=== PATIENT | male | born 1945 | race Caucasian/White ===

== ENCOUNTER 2017-11-02 06:43 | Day surgery (SDC) | payer MEDICARE ==
[~2017-11-02] VITALS: Ht 172.7 cm; Wt 110.8 kg
[2017-11-02] MEDS ORDERED: IOHEXOL 350 MG/ML 100 ML BTL (for Cath Lab) OTHER ONE (06:44)
[2017-11-02 07:00] VITALS: BP 147/82; PULSE 74; RESP 18; TEMP 99; O2SAT 94
[2017-11-02] MEDS ORDERED: NS 1000P @30 MLS/HR (KVO) IV SCH (07:00)
[2017-11-02] MEDS ORDERED: FLUO20CA12 PO (07:39)
[2017-11-02] MEDS ORDERED: GLUC500C5 PO (07:39)
[2017-11-02] MEDS ORDERED: VITA250C3 CHEW (07:39)
[2017-11-02] MEDS ORDERED: ATOR20TA15 PO (07:39)
[2017-11-02] MEDS ORDERED: DILT1TAB4 PO (07:39)
[2017-11-02] MEDS ORDERED: VITA2000 PO (07:39)
[2017-11-02] MEDS ORDERED: VALS320T6 PO (07:39)
[2017-11-02] MEDS ORDERED: METF500T PO ×2 (07:39→10:26)
[2017-11-02] MEDS ORDERED: VITA500S3 SL (07:39)
[2017-11-02] MEDS ORDERED: ASPI81TA23 PO (07:39)
[2017-11-02 07:42] LABS: AUTOMATED NEUTROPHIL # 6.9 TH/MM3 (1.8-7.7); BASOPHIL # 0.1 TH/MM3 (0-0.2); BASOPHIL % 0.8 % (0.0-2.0); EOSINOPHIL # 0.3 TH/MM3 (0-0.4); EOSINOPHIL % 2.8 % (0.0-4.0); HEMATOCRIT 41.4 % (39.0-51.0); HEMOGLOBIN 14.1 GM/DL (13.0-17.0); LYMPH % 19.6 % (9.0-44.0); MEAN CELL VOLUME 77.9 FL (80.0-100.0); MEAN CORPUSCULAR HEMOGLOBIN 26.4 PG (27.0-34.0); MEAN PLATELET VOLUME 7.4 FL (7.0-11.0); MONOCYTE # 0.8 TH/MM3 (0-0.9); NEUT % 68.8 % (16.0-70.0); PLATELET COUNT 323 TH/MM3 (150-450); RED BLOOD COUNT 5.31 MIL/MM3 (4.50-5.90); RED CELL DISTRIBUTION WIDTH 16.9 % (11.6-17.2); WHITE BLOOD COUNT 10.1 TH/MM3 (4.0-11.0)
[2017-11-02 07:54] LABS: INTERNATIONAL NORMALIZED RATIO 1.1 RATIO; PROTHROMBIN TIME - PATIENT 11.4 SEC (9.8-11.6)
[2017-11-02 07:56] LABS: BICARBONATE 27.6 MEQ/L (21.0-32.0); CALCIUM 9.6 MG/DL (8.5-10.1); CREATININE 1.23 MG/DL (0.60-1.30)
[2017-11-02] MEDS ORDERED: POTASSIUM CHLORIDE 20 MEQ CONTROLLED RELEASE TAB PO ONE (08:45)
[2017-11-02] MEDS ORDERED: VERAPAMIL HCL 5 MG/2 ML VIAL ONE (09:01)
[2017-11-02] MEDS ORDERED: NITROGLYCERIN INJ 5 ML ONE (09:02)
[2017-11-02] MEDS ORDERED: HEPARIN SODIUM - IV 10,000 UNITS/10 ML VIAL ONE (09:02)
[2017-11-02] MEDS ORDERED: LIDOCAINE HCL 1% PF 30 ML VIAL ONE (09:03)
--- NOTE | 2017-11-02 10:20 | CATHPROC ---
[facility] HIS Report Study Information Study Number Admission Scheduled Start Study Start [id number] Nov 02 2017 6:43AM 11/02/2017 Nov 02 2017 9:00AM [place] Service Cardiac Catheterization Admit Source Facility Department Other [facility] - Senior Grants Officer Physician and Clinical Staff Initial Abraham Reza Geothermal Operations Engineerhal Villanueva RN, Linda Hua,MCKENZIE Other cathlab, cathlab Recorder Joana Combs,DIRECTOR DIGITAL SALES TECH2 Scrub Teddy Donis RCIS(BS) Procedures Performed Procedure Location (Site) Vessel Name Coronary Angiograms LCA Left Coronary Coronary Angiograms RCA Right Coronary Venogram Brach. Vein (right) Brachial Vein Wire insertion Brach. Vein (right) Brachial Vein Equipment Time Email Marketing Intern Description Size Mfg Part Number Used/Scraped WIRE, RITIKA W/HYDROCOAT [id number] 09:30 [employer] 190CM Used 190CM *[id number] CATHETER, FR5 SWAN NICHOLAS 09:03 SAHNI GARVIN FR 5 110F5 *[id number] Used MONITOR TRANSDUCER, TRUWAVE [id number] 09:01 SAHNI GARVIN * Used W/STOCKCOCK *[id number] TRANSDUCER, TRUWAVE [id number] 09:01 SAHNI GARVIN * Used W/STOCKCOCK *[id number] [id number] *[id number] [id number] *[id number] [id number] *[id number] WIRE, HYDROSTEER 150CM [id number] 09:42 DAIG[employer] 150CM Used ANGLED GLIDE *[id number] 09:01 [employer] PACK, CCL CUSTOM * Used *[id number] BAND, RADIAL COMPRESSION TR [id number] 10:04 [employer] MEDICAL 29CM Used LARGE 29 *[id number] 09:01 [employer] WIRE, 3MMJ .035 180CM 180CM Used *[id number] 09:01 NAMIC MANIFOLD, 2 PORT * Used *[id number] 09:01 NAMIC MANIFOLD, 4 PORT * Used *[id number] 09:01 [employer] OMNIPAQUE, 350 MG, 150ML 150ML [id number] Used [id number] 09:01 BAXTER MED[employer] BLANKET,WARM AIR CCL * Used *[id number] SHEATH, FR6 TRANSRADIAL RM*[id number] 09:03 [employer] FR 6 Used SLENDER 10CM *[id number] SHEATH, FR6 TRANSRADIAL RM*[id number] 09:03 [facility] [facility] FR 6 Used SLENDER 10CM *[id number] Equipment Model, Serial, Lot Number and Expiration Data Description Model Number Serial Number Lot Number Expiration Date ROSA AGUILARSTEER 150CM [id number] 06-21-2020 ANGLED GLIDE History: Allergies Allergy Reaction Sulfa (Sulfonamide Antibiotics) History: Risk Factors Family History of Hypertension Dyslipidemia Previous IA Previous Heart Failure Premature CAD Yes Yes No No No Prior Valve Prior PCI Prior CABG Surgery No No No Cerebrovascular Peripheral Artery Chronic Lung On Dialysis Diabetes Disease Disease Disease No No No No No Labs Hgb (g/dl) Hct (%) WBC (l/cumm) Platelets (thousands) 11.60-17.00 35.00-51.00 4.00-11.00 150.00-450.00 14.1 41.4 10.1 323 Glucose (mg/dl) BUN (mg/dl) Creatinine (mg/dl) BUN:Creatinine (1:x) 74.00-106.00 7.00-18.00 0.50-1.30 10.00-20.00 131 21 1.2 17.5 Na (meq/l) K (meq/l) 136.00-145.00 3.50-5.10 141 3.3 INR (PTT:PT) 0.90-1.10 1.1 Medication Medication Total Dose (Bolus/Oral) Medication Total Dosage/Unit 1% XYLOCAINE 30 mL FENTANYL 50 mcg RADIAL COCKTAIL 5 mL (Bolus) Medications (Bolus/Oral) Medication Time Given Dosage/Unit Administered By Reason FENTANYL 11/02/2017 9:21:55 AM 50 mcg Fran Villanueva RN 50 mcg FENTANYL given in lab by Fran Villanueva RN in Left Antecubital via Peripheral IV. Ordered by Abraham Ni 1% XYLOCAINE 11/02/2017 9:22:16 AM 10 mL Abraham Sevilla 10 mL 1% XYLOCAINE given in lab by Abraham Sevilla in Right Radial via Subcutaneous. Ordered by Abraham Fernández RADIAL COCKTAIL 11/02/2017 9:23:00 AM 5 mL (Bolus) Abraham Sevilla 5 mL (Bolus) RADIAL COCKTAIL given in lab by Abraham Sevilla via Radial. Using [Solution Name]. O rdered by Abraham Sevilla HEPARIN 4400 UNITS,VERAPAMIL 2.5MG, NITRO 200MCG 1% XYLOCAINE 11/02/2017 9:24:56 AM 20 mL Abraham Sevilla 20 mL 1% XYLOCAINE given in lab by Abraham Sevilla in Right Antecubital via Subcutaneous. Ordered by Abraham Sevilla Medication (Drip) Medication Time Given Dosage/Unit Concentration/Unit Diluent (ml) Solution IV Solutions 11/02/2017 9:00:04 AM 0 mL (IV) 500 NaCl .9 IV Solutions given in lab by Joana Combs RRT TECH2 in Left Antecubital via Peripheral IV. Pump/D rip Flow = 20 ml/hr using NaCl .9. Ordered by Abraham Sevilla Initial Case Assessment Cardiovascular HR NIBP 71 169/90 Edema Present Skin color Skin None Normal Warm Dry Circulatory - Right Pulses Dorsalis Pedis Femoral Radial 2 1 2 Scale (0,1,2,3,4,d) Circulatory - Left Pulses Dorsalis Pedis Femoral Radial 2 1 Scale (0,1,2,3,4,d) Neurological State Oriented to time-place- Alert Moves all extremities person Respiration - General Respiration Rate SpO2 (%) (B/min) 18 96 Final Case Assessment Cardiovascular HR NIBP 69 148/81 Edema Present Skin color Skin None Normal Warm Dry Circulatory - Right Pulses Dorsalis Pedis Femoral Radial 2 1 2 Scale (0,1,2,3,4,d) Circulatory - Left Pulses Dorsalis Pedis Femoral Radial 2 1 Scale (0,1,2,3,4,d) Neurological State Oriented to time-place- Alert Moves all extremities person Respiration - General Respiration Rate SpO2 (%) (B/min) 17 94 Chronological Log Time Study Chronological Log 8:45:43 Patient arrived via Bed. 8:46:55 PATIENT RECEIVED 40MG POTASSIUM P.O. IN DOC UNITE 8:59:48 Patient Name, D.O.B, / Armband Verified By R.N. 8:59:49 Consent signed by the physician and the patient and verified by the Senior Grants Officer staff. 8:59:49 Pre-op and post- op instructions given; patient acknowledges understanding of instructions. 8:59:52 Allens test performed on the right radial and ulnar artery. 8:59:54 Patient has been NPO for More than 6Hrs. 8:59:54 Skin Breakdown- 8:59:56 Patient Warmer Placed on the Table. 8:59:57 Sebastian Prominences Protected Vitals capture started with the following parameters, Patient=Adult, Interval=5 min, Initial Pr addbcs=814 mmHg, 8:59:59 Deflation Rate=5 mmHg, Cuff placed on Left Arm 9:00:03 A # 20 IV was noted in the Antecubital (left). Grade = 0 IV Solutions given in lab by Joana Combs, YONATHAN TECH2 in Left Antecubital via Peripheral IV. Pump/Drip Flow = 20 ml/hr 9:00:04 using NaCl .9. Ordered by Abraham Sevilla 9:00:07 History and physical on the chart or being dictated. 9:00:56 HR=71 bpm, DOPG=458/90 mmhg, SpO2=96 %, Resp=18 B/min, Pain=0, Sofi=10, Berrios=2 Assessment: Initial Case, HR=71 BPM, KVKO=401/90 mmhg, Edema=None, Color=Normal, Skin = Warm, Dr y Right Pulses: Kumar Ped=2, Femoral=1, Radial=2 9:03:13 Left Pulses: Kumar Ped=2, Femoral=1 Neurological: State=Alert, Ox3, HEBERT Respiration: Resp=18 B/min, SpO2=96 % 9:03:34 Reference ECG taken 9:05:41 HR=68 bpm, FRTO=869/88 mmhg, SpO2=96 %, Resp=13 B/min, Pain=0, Sofi=10, Berrios=2 9:07:17 Right Radial and groin(s) prepped with 2% chlorhexidine, and draped after a 3 min. waiting t alfonso. 9:10:38 HR=72 bpm, MNRH=017/93 mmhg, SpO2=93.0 %, Resp=14 B/min, Pain=0, Sofi=10, Berrios=2 9:15:41 HR=69 bpm, BOEK=032/92 mmhg, SpO2=95 %, Resp=20 B/min, Pain=0, Sofi=10, Berrios=2 9:15:46 Pressure channel 1 zeroed. 9:18:00 Pressure channel 1 zeroed. Time Out. Correct patient, correct procedure, correct physician, power injector not loaded with contrast with surgical 9:20:01 team present. Time Out Concurred by MD and individual staff in procedure. ::16 Case Start 9:20:42 HR=70 bpm, ARRK=392/88 mmhg, SpO2=95 %, Resp=16 B/min, Pain=0, Sofi=10, Berrios=2 9::55 50 mcg FENTANYL given in lab by Fran Villanueva RN in Left Antecubital via Peripheral IV. Order ed by Abraham Sevilla 10 mL 1% XYLOCAINE given in lab by Abraham Sevilla in Right Radial via Subcutaneous. Ordered by Roel :: Abraham Villanueva 9:: Access site was Radial Artery. A SHEATH, FR6 TRANSRADIAL SLENDER 10CM FR 6 was advanced into the Radial (right) using the Modif ied Seldinger ::34 technique. 5 mL (Bolus) RADIAL COCKTAIL given in lab by Abraham Sevilla via Radial. Using [Solution Nam e]. Ordered by 9:23:00 Abraham Sevilla HEPARIN 4400 UNITS,VERAPAMIL 2.5MG, NITRO 200MCG 20 mL 1% XYLOCAINE given in lab by Abraham Sevilla in Right Antecubital via Subcutaneous. Or dered by Roel, 9:24:56 Abraham Cabrales. 9:25:41 HR=78 bpm, IBSA=699/88 mmhg, SpO2=91 %, Resp=19 B/min, Pain=0, Sofi=10, Berrios=2 9::27 Access site was Right Brachial Vein. A SHEATH, FR6 TRANSRADIAL SLENDER 10CM FR 6 was advanced into the Brach. Vein (right) using the Modified ::17 Seldinger technique. 9:28:24 A CATHETER, FR5 SWAN NICHOLAS MONITOR FR 5 was inserted via Brach. Vein (right) 9:30:19 The Brach. Vein (right) was manually injected with 10 cc's of contrast. OMNIPAQUE, 350 MG, 1 50ML 150ML used. 9:30:40 HR=72 bpm, MUVU=230/82 mmhg, SpO2=89.0 %, Resp=17 B/min, Pain=0, Sofi=10, Berrios=2 9:30:45 A WIRE, WHISPER W/HYDROCOAT 190CM 190CM was inserted via Brach. Vein (right). 9:32:46 Wire removed Recorded Pressure: PCW, HR=66, Condition=Condition 1 9:34:40 (Pulmonary Capillary Wedge) PCW 16/13/13 9:35:41 HR=68 bpm, LDIW=810/84 mmhg, SpO2=93 %, Resp=11 B/min, Pain=0, Sofi=10, Berrios=2 9:36:29 Saturation: Site=PA (Pulmonary Artery) , O2=76.7 %, Hgb=14.1 gm/dl, Condition=Condition 1. U sed in calculation. 9:37:17 Saturation: Site=Ao (Aorta) , O2=94.9 %, Hgb=14.1 gm/dl, Condition=Condition 1. Used in calc ulation. Recorded Pressure: MPA, HR=70, Condition=Condition 1 9:37:35 (Main Pulmonary Artery) MPA Recorded Pressure: RV, HR=63, Condition=Condition 1 9:38:24 (Right Ventricle) RV 37/6/11 Recorded Pressure: RA, HR=66, Condition=Condition 1 9:39:10 (Right Atrium) RA 04/07/10 9:40:40 HR=63 bpm, UDGE=766/85 mmhg, SpO2=93.0 %, Resp=16 B/min, Pain=0, Sofi=10, Berrios=2 9:40:50 [place] Nicholas Catheter Removed A JR 4.0 INFINITI CATHETER FR 5 was advanced over a wire. OMNIPAQUE, 350 MG, 150ML 150ML was us ed for 9:43:35 injections. 9:43:43 The previous wire was exchanged for a WIRE, HYDROSTEER 150CM ANGLED GLIDE 150CM. 9:44:46 The previous wire was exchanged for a WIRE, 3MMJ .035 180CM 180CM. 9:45:39 HR=66 bpm, YHLI=785/81 mmhg, SpO2=94 %, Resp=15 B/min, Pain=0, Sofi=10, Berrios=2 Recorded Pressure: Ao, HR=64, Condition=Condition 1 9:45:55 (Aorta) Ao 152/68/100 After removing the current catheter a 3DRC INFINITI CATHETER FR 5 was advanced over a WIRE, 3MM J .035 180CM 9:49:20 180CM. 9:50:40 HR=68 bpm, XXVY=425/85 mmhg, SpO2=93.0 %, Resp=18 B/min, Pain=0, Sofi=10, Berrios=2 9:51:17 The RCA was injected and visualized at various angles. OMNIPAQUE, 350 MG, 150ML 150ML used . After removing the current catheter a JL 3.5 INFINITI CATHETER FR 5 was advanced over a WIRE, 3 MMJ .035 180CM 9:52:19 180CM. 9:55:31 The LCA was injected and visualized at various angles. OMNIPAQUE, 350 MG, 150ML 150ML used . 9:55:41 HR=66 bpm, KABN=203/80 mmhg, SpO2=94 %, Resp=15 B/min, Pain=0, Sofi=10, Berrios=2 10:00:41 HR=76 bpm, QOHJ=085/85 mmhg, SpO2=93 %, Resp=18 B/min, Pain=0, Sofi=10, Berrios=2 10:01:58 Activated Clotting Time Drawn 10:02:13 Case End 10:03:15 Catheter(s) removed without difficulty Radial Compression Device Used. ~VOLUME ML~ mLs of air placed in BAND, RADIAL COMPRESSION TR LA RGE 29 10:04:33 29CM. Affected hand ~O2 SATURATION~ % O2 saturation. 10:04:55 BRACHIAL VENOUS Sheath(s) left in place, will be removed in Holding Area 10:05:41 HR=72 bpm, JFHH=559/81 mmhg, SpO2=92.0 %, Resp=12 B/min, Pain=0, Sofi=10, Berrios=2 10:05:46 ACT (Normal Range 90-180) = 189 10:06:48 Sterile dressing applied to site 10:06:49 No case complications noted. Assessment: Final Case, HR=69 BPM, WNRC=684/81 mmhg, Edema=None, Color=Normal, Skin = Warm, Dry Right Pulses: Kumar Ped=2, Femoral=1, Radial=2 10:07:32 Left Pulses: Kumar Ped=2, Femoral=1 Neurological: State=Alert, Ox3, HEBERT Respiration: Resp=17 B/min, SpO2=94 % 10:07:57 Vitals capture stopped. 10:10:47 Bedside Report will be given. 10:10:51 A Left and Right Heart Cath was performed. End Study - Contrast Media Used In Study Contrast Total Opened (mL) Total Used (mL) Total Wasted (mL) Omnipaque 70 70 0 End Study - Maximum Contrast Load Max Contrast Load (mL) 461.7 End Study - Radiation Exposure Fluoro Time (minutes) 9.9 End Study - Patient Disposition Complications Transferred To No Telemetry Bed
--- NOTE | 2017-11-02 10:59 | MA ---
cc: Abraham Sevilla DO DATE: 11/02/2017 DATE OF PROCEDURE: 11/02/2017 PROCEDURE PERFORMED: Coronary angiogram, right heart catheterization, ultrasound-guided access. PREOPERATIVE DIAGNOSIS: Severe aortic stenosis by echocardiogram for aortic valve replacement. POSTOPERATIVE DIAGNOSIS: Severe aortic stenosis by echocardiogram, coronary artery disease. MEDICATIONS: Fentanyl 50 mcg, nitro 200, verapamil 2.5 mg, heparin 4400 units. CONTRAST USED: 70 mL. FLUOROSCOPY TIME: 9.9 minutes. MODERATE SEDATION: Zero minutes. FRAILTY SCORE: 3 ESTIMATED BLOOD LOSS: 10 mL. PROCEDURAL SUMMARY: Justino Gray is a pleasant 72-year-old male who sees my partner, Dr. Nguyen, in the office and has undergone echocardiogram which showed severe aortic stenosis. Because of this, he was recommended cardiac catheterization. Risks, benefits and alternatives were explained to him and he consented to such. He was brought to the lab and prepped in the usual sterile fashion. The right radial artery was accessed using a modified Seldinger technique and placement of a 5/6-Portuguese slender sheath. This was easily aspirated and flushed. Right brachial vein was accessed using modified Seldinger technique and ultrasound guidance and placement of a 5/6-Portuguese slender sheath. This was easily aspirated and flushed. A Markle-Brady catheter was advanced to the upper arm and there was some difficulty with tortuosity and so a moderate support Whisper was used to advance the Markle-Brady catheter. The Markle-Brady was taken to a wedge position. Oxygen saturations and pressures were taken in a standard fashion upon pullback throughout the heart. Markle-Brady catheter was removed. JR4 was advanced over J-wire to the ascending aorta but was unable to engage the RCA due to significant tortuosity and so this was exchanged for a 3DRC which was used to perform selective angiography of the right coronary artery system. This was exchanged out for a 3.5, which was used to perform selective angiography of the left coronary artery system. JL3.5 was removed over a J -simone. A radial band was placed over the arteriotomy site for hemostasis. ACT was drawn at 189 and so the brachial sheath will be left until appropriate to pull and pressure held for hemostasis. 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 FINDINGS: Left main is a normal size vessel with adequate reflux. It bifurcates into an LAD and circumflex. It has 20% disease distally. LAD is a normal size vessel with a stent patent in the proximal portion and 10% in-stent restenosis. Distal to this in the mid portion, there is 80% lesion after the takeoff of the first diagonal. It gives off 1 major diagonal which has an upper and lower branch. The upper branch appears to have 70% disease while the lower branch has about 50% disease. Left circumflex is a normal size vessel with 20-30% disease throughout the proximal portion. It gives off 1 major obtuse marginal which has no significant disease throughout. RCA is a normal size vessel with diffuse 30% disease throughout. It gives off a PDA, which has a 99% lesion at the ostium. HEMODYNAMICS: RA 10. RV 37/6, RV EDP 11. PA 32/16, mean PA 22. Wedge 13. IMPRESSION: 1. Severe aortic stenosis by echocardiogram. 2. Coronary artery disease, as above, with significant disease of his left anterior descending and posterior descending artery. RECOMMENDATIONS: 1. Mr. Gray appears to have severe aortic stenosis as well as coronary artery disease and he will be recommended consideration of AVR plus CABG. 2. He will be seen by CT surgery and most likely be set up electively in the near future. 3. He will be discharged home today. Thank you for allowing me to see Justino Gray. If there are any questions, please do not hesitate to call. DO NICOLE Gaona/ALFREDO , 10:22 AM , 10:58 AM ARELY
[2017-11-02] MEDS ORDERED: CHLO.12%30 SWISH-SPIT (11:55)
--- NOTE | 2017-11-02 12:39 | RADRPT ---
EXAM DATE/TIME: 11/02/2017 11:58 [facility] COMPARISON: No previous studies available for comparison. INDICATIONS : Pre-op CABG. MEDICAL HISTORY : None. SURGICAL HISTORY : None. ENCOUNTER: Initial ACUITY: 1 day PAIN SCORE: 0/10 LOCATION: Bilateral chest FINDINGS: The lungs are clear. The heart is minimally enlarged. The pulmonary vascularity is normal. There is n o evidence for infiltrate or failure. The portion of the bony skeleton visualized is unremarkable. CONCLUSION: Compensated cardiomegaly otherwise negative Bradford Hand MD FACR on November 02, 2017 at 12:36 Board Certified Radiologist. This report was verified electronically.
[2017-11-02 13:04] LABS: BILIRUBIN, URINE NEG (NEG); BLOOD, URINE NEG (NEG); GLUCOSE,URINE NEG (NEG); HYALINE CAST, URINE 3 /lpf (RARE); KETONE, URINE NEG (NEG); MUCUS URINE FEW /lpf (OCC); NITRITE,URINE NEG (NEG); URINE COLOR YELLOW (YELLW/STRAW); URINE LEUKOCYTE ESTERASE NEG (NEG)
--- NOTE | 2017-11-02 15:50 | RADRPT ---
EXAM DATE/TIME: 11/02/2017 14:04 [facility] COMPARISON: No previous studies available for comparison. INDICATIONS : Preop cardiac surgery. MEDICAL HISTORY : Diabetes mellitus type 2. Hypertension. Coronary artery disease. Aortic stenosis. SURGICAL HISTORY : Cardiac cath. ENCOUNTER: Initial ACUITY: 1 day PAIN SCORE: 0/10 LOCATION: Bilateral leg. GREATER SAPHENOUS VEIN THIGH: PROXIMAL: Right 4 mm Left 5 mm MID: Right 3 mm Left 4 mm DISTAL: Right 2 mm Left 4 mm CALF: PROXIMAL: Right 2 mm Left 3 mm MID: Right 2 mm Left 2 mm DISTAL: Right 2 mm Left 1 mm FINDINGS: The venous system of the lower extremities are patent by color Doppler imaging. Measurements of the leg veins (in mm) are listed above. CONCLUSION: 1. Lower extremity venous mapping, as above. Norman Richards MD on November 02, 2017 at 15:48 Board Certified Radiologist. This report was verified electronically.
--- NOTE | 2017-11-02 15:50 | RADRPT ---
EXAM DATE/TIME: 11/02/2017 13:44 [facility] COMPARISON: No previous studies available for comparison. INDICATIONS : Preop cardiac surgery. MEDICAL HISTORY : Diabetes mellitus type 2. Hypertension. Coronary artery disease. Aortic stenosis. SURGICAL HISTORY : Cardiac cath. ENCOUNTER: Initial ACUITY: 1 day PAIN SCORE: 0/10 LOCATION: Bilateral leg. TECHNIQUE: Venous ultrasound of the left and right leg was performed from the inguinal ligament to the proximal calf. Real-time, color Doppler and spectral tracing, compression and augmentation techniques were us ed. FINDINGS: RIGHT LEG: There is arterialized waveforms in the right common femoral vein. There is normal compressibility of the deep venous system from the inguinal region to the proximal calf. No echogenic clot is seen in t he lumen of the common femoral, femoral, popliteal, and posterior tibial veins. There is a normal re sponse of the venous system to proximal and distal augmentation and respiration. LEFT LEG: There is normal compressibility of the deep venous system from the inguinal region to the proximal ca lf. No echogenic clot is seen in the lumen of the common femoral, femoral, popliteal, and posterior tibial veins. There is a normal response of the venous system to proximal and distal augmentation an d respiration. CONCLUSION: 1. 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 2. No sonographic evidence for lower extremity DVT. Norman Richards MD on November 02, 2017 at 15:45 Board Certified Radiologist. This report was verified electronically.
--- NOTE | 2017-11-02 15:51 | RADRPT ---
EXAM DATE/TIME: 11/02/2017 14:21 [facility] COMPARISON: No previous studies available for comparison. INDICATIONS : Preop cardiac surgery. MEDICAL HISTORY : Diabetes mellitus type 2. Hypertension. Coronary artery disease. Aortic stenosis. SURGICAL HISTORY : Cardiac cath. ENCOUNTER: Initial ACUITY: 1 day PAIN SCORE: 0/10 LOCATION: Bilateral neck PEAK SYSTOLIC VELOCITIES (cm/sec): ICA/CCA RATIO: Right: 1.0 Left: 0.8 ICA: Right: 52 Left: 68 CCA: Right: 52 Left: 86 ECA: Right: 44 Left: 50 VERTEBRAL: Right: 52 antegrade Left: 45 antegrade Elevated flow velocities and ICA/CCA ratios have been found to correlate with increased degrees of vessel stenosis, calculated as percentage of diameter relative to a normal segment of distal ICA/CCA FINDINGS: RIGHT CAROTID: No significant stenosis is visualized. The waveforms are within normal limits. LEFT CAROTID: No significant stenosis is visualized. The waveforms are within normal limits. VERTEBRAL ARTERIES: Antegrade flow is seen in both vertebral arteries. MISCELLANEOUS: None. CONCLUSION: 1. Mild carotid plaque without significant flow-limiting stenosis. 2. Antegrade vertebral artery flow bilaterally. Norman Richards MD on November 02, 2017 at 15:49 Board Certified Radiologist. This report was verified electronically.
--- NOTE | 2017-11-02 15:51 | PD.CAR.PN ---
CVT Progress Note Subjective/Hospital Course: pt seen and evaluated, sts data discussed with pt full consult to follow RISK SCORES About the STS Risk Calculator Procedure: AV Replacement + CAB Risk of Mortality: 2.619% Morbidity or Mortality: 22.408% Long Length of Stay: 10.048% Short Length of Stay: 26.794% Permanent Stroke: 2.239% Prolonged Ventilation: 13.511% DSW Infection: 0.988% Renal Failure: 7.522% Reoperation: 9.054% Objective: Vital Signs Date Time Temp Pulse Resp B/P (MAP) Pulse Ox O2 Delivery O2 Flow Rate FiO2 11/02/17 10:18 92 Room Air 11/02/17 07:00 99.0 74 18 147/82 (103) 94 Labs: Laboratory Tests Test 11/02/17 07:17 11/02/17 12:39 White Blood Count 10.1 TH/MM3 (4.0-11.0) Red Blood Count 5.31 MIL/MM3 (4.50-5.90) Hemoglobin 14.1 GM/DL (13.0-17.0) Hematocrit 41.4 % (39.0-51.0) Mean Corpuscular Volume 77.9 FL (80.0-100.0) Mean Corpuscular Hemoglobin 26.4 PG (27.0-34.0) Mean Corpuscular Hemoglobin Concent 34.0 % (32.0-36.0) Red Cell Distribution Width 16.9 % (11.6-17.2) Platelet Count 323 TH/MM3 (150-450) Mean Platelet Volume 7.4 FL (7.0-11.0) Neutrophils (%) (Auto) 68.8 % (16.0-70.0) Lymphocytes (%) (Auto) 19.6 % (9.0-44.0) Monocytes (%) (Auto) 8.0 % (0.0-8.0) Eosinophils (%) (Auto) 2.8 % (0.0-4.0) Basophils (%) (Auto) 0.8 % (0.0-2.0) Neutrophils # (Auto) 6.9 TH/MM3 (1.8-7.7) Lymphocytes # (Auto) 2.0 TH/MM3 (1.0-4.8) Monocytes # (Auto) 0.8 TH/MM3 (0-0.9) Eosinophils # (Auto) 0.3 TH/MM3 (0-0.4) Basophils # (Auto) 0.1 TH/MM3 (0-0.2) CBC Comment DIFF FINAL Differential Comment Prothrombin Time 11.4 SEC (9.8-11.6) Prothromb Time International Ratio 1.1 RATIO Activated Partial Thromboplast Time 27.5 SEC (24.3-30.1) Blood Urea Nitrogen 21 MG/DL (7-18) Creatinine 1.23 MG/DL (0.60-1.30) Random Glucose 131 MG/DL (74-106) Calcium Level 9.6 MG/DL (8.5-10.1) Sodium Level 141 MEQ/L (136-145) Potassium Level 3.3 MEQ/L (3.5-5.1) Chloride Level 104 MEQ/L (98-107) Carbon Dioxide Level 27.6 MEQ/L (21.0-32.0) Anion Gap 9 MEQ/L (5-15) Estimat Glomerular Filtration Rate 58 ML/MIN (>89) Albumin 3.6 GM/DL (3.4-5.0) Urine Color YELLOW (YELLW/STRAW) Urine Turbidity CLEAR (CLEAR) Urine pH 6.0 (5.0-8.5) Urine Specific [place] 1.041 (1.002-1.035) Urine Protein 30 mg/dL (NEG-TRACE) Urine Glucose (UA) NEG mg/dL (NEG) Urine Ketones NEG mg/dL (NEG) Urine Occult Blood NEG (NEG) Urine Nitrite NEG (NEG) Urine Bilirubin NEG (NEG) Urine Urobilinogen LESS THAN 2.0 MG/DL (LESS Urine Leukocyte Esterase NEG (NEG) Urine RBC LESS THAN 1 /hpf (0-3) Urine WBC LESS THAN 1 /hpf (0-5) Urine Hyaline Casts 3 /lpf (RARE) Urine Mucus FEW /lpf (OCC) Microscopic Urinalysis Comment CULT NOT INDICATED Result Diagram: 11/02/1771611/02/1717 Erika Mckeon Nov 02, 2017 15:51
--- NOTE | 2017-11-02 16:46 | MB ---
cc: Erika Mckeon Jacqueline R ARNP DATE: 11/02/2017 DATE OF : HISTORY OF PRESENT ILLNESS: This is a 72-year-old male patient of Dr. Kumar Valdez, also Dr. Nguyen, who has history of aortic stenosis, has had no recent chest pain or shortness of breath or presyncopal symptoms. He has had his echocardiogram followed. His last echocardiogram showed worsening aortic stenosis, ejection fraction of 60%, some diastolic dysfunction grade 1. The aortic valve had a valve area of 0.84, mean gradient of 46, peak gradient of 73 mmHg, some mild to trivial mitral regurgitation so he underwent cardiac catheterization by Dr. Sevilla today, which showed left main disease of 20%. He has a history of a stent in the LAD; there is a 20% stenosis, mid-LAD 80%, diagonal 70%, circumflex 40%, RCA 99%. We were consulted to evaluate for coronary artery bypass grafting 2-3, also aortic valve replacement. PAST MEDICAL HISTORY: Includes aortic stenosis, history of sleep apnea but does not wear a sleep device; history of bruit, diabetes mellitus type 2, hyperlipidemia, hypertension, obesity, body mass index of 37. PAST SURGICAL HISTORY: Include coronary stent to the LAD and septoplasty. ALLERGIES: SULFA. HOME MEDICATIONS: Include: 1. Aspirin. 2. Atorvastatin. 3. Diltiazem. 4. Prozac. 5. Glucosamine. 6. Metformin. 7. Valsartan/hydrochlorothiazide. 8. Multivitamin. FAMILY HISTORY: Father from old age. Mother had coronary artery disease. 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 No tobacco or alcohol. Somewhat sedentary. REVIEW OF SYSTEMS: GENERAL: No night sweats, fever, heat and cold intolerance. SKIN: No psoriasis, itching or hives. HEENT: No blurred vision, hearing loss. RESPIRATORY: No cough, shortness of breath. CARDIOVASCULAR: No chest pain. No paroxysmal nocturnal dyspnea. No orthopnea. no leg cramps or edema. GASTROINTESTINAL: No diarrhea or vomiting. GENITOURINARY: No burning, frequency, urgency. CENTRAL NERVOUS SYSTEM: No history of TIA, CVA or seizure disorder. ENDOCRINOLOGY: Positive for history of diabetes. PHYSICAL EXAMINATION: VITAL SIGNS: Blood pressure 140/80, heart rate of 74, temperature T-max 99. Room air saturation 92. GENERAL: The patient is awake, alert, in no acute distress. HEENT: Head is normocephalic, atraumatic. Oral mucosa pink, moist. He has got some poor dentition, however, there is no infected gumline. He has no loose teeth; however, he does have some dental caries in the left lower jaw area. HEART: Sounds S1, S2, grade 3/6 systolic murmur best noted at the left sternal border. LUNGS: Clear to auscultation. No wheezes, rales or rhonchi. ABDOMEN: Obese, soft, nontender. No masses or organomegaly. EXTREMITIES: No cyanosis, clubbing, or edema. LABORATORY DATA: Hemoglobin of 14, hematocrit of 41. White cell count 10, platelet count of 323. Sodium 141, potassium 3.3, which has been replaced. BUN of 21 with a creatinine of 1.23, glucose 131. INR 1.1. Urinalysis is unremarkable. MRSA screen pending. IMAGING STUDIES: Carotid ultrasound pending. Lower extremity pending. PFTs are pending. IMPRESSION AND PLAN: This is a 72-year-old male with aortic valve stenosis with a valve area of 0.84 cm2. Also, coronary artery disease with disease to the LAD, diagonal, and the RCA. The cardiac films will be evaluated by Dr. Arlene Srinivasan and evaluated for aortic valve replacement, coronary artery bypass grafting and endoscopic harvesting. The procedures, alternatives and risks will be discussed with the patient. STS data discussed and placed in the electronic record. The patient is stable to go home and come back as an outpatient. Further planning per Dr. Arlene Rose. ANDRES Calderon MD JRT/NICANOR , 03:22 PM , 04:45 PM
[2017-11-02 17:17] LABS: ALBUMIN 3.7 GM/DL (3.4-5.0); DIRECT BILIRUBIN ADULT 0.2 MG/DL (0.0-0.2)
[2017-11-02 17:18] LABS: INDIRECT BILIRUBIN 0.5 MG/DL (0.0-0.8); TOTAL BILIRUBIN ADULT 0.7 MG/DL (0.2-1.0); TOTAL PROTEIN 7.4 GM/DL (6.4-8.2)
[2017-11-02 17:35] LABS: HEMOGLOBIN A1C 6.6 % (4.3-6.0)
--- NOTE | 2017-11-03 12:59 | EKG ---
Date Performed: 11/02/2017 Time Performed: 07:32:02 PTAGE: 72 years EKG: Probable atrial fibrillation Leftward axis Cannot rule out septal infarct - age undetermine d Left ventricular hypertrophy by voltage only Inferior T wave changes are nonspecific Abnormal ECG C ompared to PREVIOUS TRACING , LVH by voltage is new. PREVIOUS TRACIN06/29/2001 09.35.59 DOCTOR: Roge Key Interpretating Date/Time 11/03/2017 12:58:54
== END 2017-11-02 17:05 | disposition home or self-care (01) ==
LOC: HDOC 06:43 → HDIC 06:44 → HDOC 17:05
PROVIDERS: ATTEND Nuclear Medicine Nuclear Cardiology
DX: I25.10 Atherosclerotic heart disease of native coronary artery without angina pectoris (principal); I35.0 Nonrheumatic aortic (valve) stenosis; I35.1 Nonrheumatic aortic (valve) insufficiency; I11.9 Hypertensive heart disease without heart failure; E11.9 Type 2 diabetes mellitus without complications; G47.30 Sleep apnea, unspecified; E78.5 Hyperlipidemia, unspecified; E66.9 Obesity, unspecified; Z68.37 Body mass index [BMI] 37.0-37.9, adult; I44.0 Atrioventricular block, first degree; I65.29 Occlusion and stenosis of unspecified carotid artery; M54.5 Low back pain; M19.90 Unspecified osteoarthritis, unspecified site; Z95.5 Presence of coronary angioplasty implant and graft; Z79.84 Long term (current) use of oral hypoglycemic drugs; Z01.818 Encounter for other preprocedural examination
CPT/HCPCS: 71045; 80048; 80076; 81001; 82040; 82810; 83036; 85002; 85025; 85610; 85730; 86850; 86900; 86901; 87641; 93005; 93456; 93880; 93970; 93998; 94010; C1769; C1893; J1644; J3010; Q9967